=== PATIENT | male | born 1980 | race African-American/Black ===

== ENCOUNTER 2018-01-31 18:32 | Emergency (ER) | payer OTHER ==
[2018-01-31 19:02] VITALS: BP 129/83; PULSE 73; TEMP 98; BMI 19.6
--- NOTE | 2018-01-31 19:46 | PDOC ---
History of Present Illness - General Chief Complaint: Injury Stated Complaint: LACERATION Time Seen by Provider: 01/31/18 19:29 - History of Present Illness Initial Comments: 37-year-old male without any medical comorbidities and up-to-date on tetanus presents for evaluation of the left fifth finger laceration. This occurred while working on his car using a henna when the henna slipped and lacerated his finger. Describes his pain as achy exacerbated with motion relieved with rest free of radiation no prior problems with left fifth finger. He treated the wound with soap and water and direct pressure. Bleeding is well-controlled. 01/31/18 19:45 Past History - Past Medical History Allergies/Adverse Reactions: Allergies Allergy/AdvReac Type Severity Reaction Status Date / Time No Known Allergies Allergy Verified 01/31/18 19:02 Home Medications: Ambulatory Orders Cephalexin [Keflex] 500 mg PO QID #40 capsule 01/31/18 Sulfamethoxazole/Trimethoprim [Bactrim Ds -] 1 tab PO BID #14 tablet 01/31/18 COPD: No - Suicide/Smoking/Psychosocial Hx Smoking History: Never smoked Have you smoked in the past 12 months: No Number of Cigarettes Smoked Daily: 10 Information on smoking cessation initiated: No 'Breaking Loose' booklet given: 06/07/16 Hx Alcohol Use: No Drug/Substance Use Hx: No Substance Use Type: None Hx Substance Use Treatment: No Review of Systems - Review of Systems Musculoskeletal: Yes: See HPI All Other Systems: Reviewed and Negative *Physical Exam - Vital Signs Last Vital Signs Temp Pulse Resp BP Pulse Ox 98.0 F 73 16 129/83 100 01/31/18 18:59 01/31/18 18:59 01/31/18 18:59 01/31/18 18:59 01/31/18 18:59 - Physical Exam Comments: There is a linear laceration at the volar aspect of the left fifth finger extending distally from the PIPJ to the tip of the finger. The wound was explored. There is no foreign bodies. FDS and FDP work independently. There are no gross sensorimotor deficits. Subcutaneous fat is exposed. 01/31/18 19:46 Procedures - Laceration/Wound Repair Left Dorsal Finger Wound Length: 2.6 to 5.0 cm Wound Explored: clean, no foreign body present, contaminated Wound's Depth, Shape: into muscle, linear, contused tissue Irrigated w/ Saline: Yes Betadine Prep: Yes Anesthesia: 1% Lidocaine Amount of Anesthetic (ccs): 6 Wound Debrided: extensive Wound Repaired With: Sutures Suture Size/Type: 4:0 Number of Sutures: 5 Sterile Dressing Applied: Yes Splint Applied: Yes Type of Splint Applied: frog Sling Applied: No Progress: 01/31/18 20:50 Tolerated well ED Treatment Course - RADIOLOGY Radiology Studies Ordered: Category Date Time Status FINGER(S) LEFT [RAD] Stat Radiology 01/31/18 19:44 Ordered Medical Decision Making - Medical Decision Making X-rays reviewed there is an open gisela fracture at the distal phalanx of the left fifth finger. I will give him a dose of IV antibiotics now. I've reached out hand surgery and waiting further instructions. 01/31/18 20:00 *DC/Admit/Observation/Transfer Diagnosis at time of Disposition: Open fracture - Discharge Dispostion Disposition: HOME Condition at time of disposition: Stable Decision to Admit order: No - Referrals Referrals: Hai Schneider MD [Staff Physician] - - Patient Instructions Printed Discharge Instructions: DI for Open Fracture Additional Instructions: Keep wound dressing on for 48 hours, may unwrap in 48 hours and wash the area with soap and water. Return to ER if symptoms worsen or go unresolved prior to follow up with hand surgery. Follow up with Dr Schneider from hand surgery in 2-3 days. Take both antibiotics as directed. Tylenol and motrin as directed for pain. - Post Discharge Activity
[2018-01-31] MEDS ORDERED: CEFAZOLIN 1 GM in DEXTROSE 5%-WATER - 50 ML IVPB ONE (19:56)
[2018-01-31] MEDS ORDERED: ceFAZolin SODIUM 1 GM VIAL ONE (20:05)
[2018-01-31] MEDS ORDERED: LIDOCAINE HCL 1%, 10 MG/ML (20ML VIAL) ONE (20:30)
[2018-01-31] MEDS ORDERED: LIDOCAINE HCL 1%, 10 MG/ML (50 mL VIAL) SQ ONE (20:31)
== END 2018-01-31 21:13 | disposition home or self-care (01) ==
LOC: JERFT 18:32
PROC: 3E0234Z Introduction of Serum, Toxoid and Vaccine into Muscle, Percutaneous Approach (ICD-10-PCS; principal; 2018-01-31)
PROC: 0JQK0ZZ Repair Left Hand Subcutaneous Tissue and Fascia, Open Approach (ICD-10-PCS; 2018-01-31)
PROC: 2W3DX1Z Immobilization of Left Lower Arm using Splint (ICD-10-PCS; 2018-01-31)
DX: S62.667B Nondisplaced fracture of distal phalanx of left little finger, initial encounter for open fracture (principal); W27.8XXA Contact with other nonpowered hand tool, initial encounter; Y93.89 Activity, other specified; Y92.89 Other specified places as the place of occurrence of the external cause; Y99.8 Other external cause status
CPT/HCPCS: 73140-TC-LT-FY; 99281-25